=== PATIENT | male | born 1950 | race Caucasian/White ===

== ENCOUNTER 2020-12-08 09:00 | Outpatient (REF) | payer MEDICARE, SELFPAY ==
[2020-12-08 11:44] LABS: Hematocrit 43.2 % (42-52); Hemoglobin 14.5 g/dl (14.0-18.0); Mean Corpuscular HGB Conc 33.6 g/dl (31.0-36.0); Mean Corpuscular Volume 95.4 fL (80-98); Platelet Count 217 X10*3/uL (160-400); Red Blood Count 4.53 X10*6/uL (4.60-5.80); Red Cell Distribution Width 12.7 % (11.0-16.0); White Blood Count 4.2 X10*3/uL (4.8-10.8)
[2020-12-08 11:59] LABS: Alanine Aminotransferase 17 U/L (0-40); Albumin Level 4.5 g/dL (3.5-5.0); Alkaline Phosphatase 89 U/L (39-117); Anion Gap 12 (12-20); Aspartate Amino Transferase 20 U/L (5-37); Blood Urea Nitrogen 30 mg/dL (9-16); Calcium 9.2 mg/dL (8.4-10.2); Carbon Dioxide 28 mmol/L (22-29); Chloride 104 mmol/L (96-108); Cholesterol 176 mg/dL; Estimated Glomerular Filt Rate > 60; Glucose Fasting 96 mg/dL (60-99); HDL Cholesterol 73 mg/dL; LDL Cholesterol Calculated 92 mg/dl; Potassium 4.3 mmol/l (3.3-5.1); Sodium 140 mmol/L (135-145); Total Protein 7.2 g/dL (6.5-8.0); Triglycerides 58 mg/dL
== END 2020-12-08 09:01 | disposition home or self-care (01) ==
LOC: HO.MANLDS 09:00
PROVIDERS: PCP Internal Medicine; Visit Provider Internal Medicine
DX: E78.00 Pure hypercholesterolemia, unspecified (principal)
CPT/HCPCS: 36415; 80053; 80061; 85027

== ENCOUNTER 2021-02-23 10:23 | Outpatient (REF) | payer MEDICARE, SELFPAY ==
[2021-02-23 14:08] LABS: T4 Thyroxine 5.2 ug/dL (4.5-12.0); Thyroid Stimulating Hormone 4.57 uIU/mL (0.32-4.0)
== END 2021-02-23 10:24 | disposition home or self-care (01) ==
LOC: HO.MANLDS 10:23
PROVIDERS: Visit Provider Internal Medicine
DX: C76.0 Malignant neoplasm of head, face and neck (principal)
CPT/HCPCS: 36415; 84436; 84443

== ENCOUNTER 2021-07-06 08:47 | Outpatient (REF) | payer MEDICARE, SELFPAY ==
[2021-07-06 12:06] LABS: Free T4 (Free Thyroxine) 0.69 ng/dL (0.71-1.85); PSA,Total (Free>4and<10) 0.63 ng/mL (0.00-4.00); Thyroid Stimulating Hormone 7.95 uIU/mL (0.32-4.0)
== END 2021-07-06 08:48 | disposition home or self-care (01) ==
LOC: HO.MANLDS 08:47
PROVIDERS: PCP Internal Medicine; Visit Provider Internal Medicine
DX: R94.6 Abnormal results of thyroid function studies (principal); Z12.5 Encounter for screening for malignant neoplasm of prostate; C61 Malignant neoplasm of prostate
CPT/HCPCS: 36415; 84153; 84439; 84443

== ENCOUNTER 2021-09-28 15:28 | Outpatient (REF) | payer MEDICARE, SELFPAY ==
[2021-09-28 17:48] LABS: Hematocrit 37.6 % (42.0-52.0); Hemoglobin 13.1 g/dl (14.0-18.0); Mean Corpuscular HGB Conc 34.8 g/dl (31.0-36.0); Mean Corpuscular Hemoglobin 32.3 pg (27.0-33.0); Mean Corpuscular Volume 92.6 fL (80.0-98.0); Mean Platelet Volume 9.9 fL (9.4-12.4); Platelet Count 210 X10*3/uL (160-400); Red Blood Count 4.06 X10*6/uL (4.60-5.80); Red Cell Distribution Width 12.4 % (11.0-16.0); White Blood Count 4.6 X10*3/uL (4.8-10.8)
[2021-09-28 18:07] LABS: Alanine Aminotransferase 16 U/L (0-40); Albumin Level 4.3 g/dL (3.5-5.0); Alkaline Phosphatase 106 U/L (39-117); Anion Gap 13 (12-20); Aspartate Amino Transferase 17 U/L (5-37); Bilirubin Total 0.6 mg/dL (0.0-1.0); Blood Urea Nitrogen 19 mg/dL (9-16); Calcium 9.3 mg/dL (8.4-10.2); Carbon Dioxide 27 mmol/L (22-29); Chloride 108 mmol/L (96-108); Estimated Glomerular Filt Rate > 60; Glucose Random 99 mg/dL (60-115); Potassium 3.9 mmol/L (3.3-5.1); Sodium 144 mmol/L (135-145); Total Protein 6.7 g/dL (6.5-8.0)
[2021-09-28 18:29] LABS: Free T4 (Free Thyroxine) 1.18 ng/dL (0.71-1.85); Thyroid Stimulating Hormone 0.07 uIU/mL (0.32-4.0)
== END 2021-09-28 15:29 | disposition home or self-care (01) ==
LOC: HO.MANLDS 15:28
PROVIDERS: PCP Internal Medicine; Visit Provider Internal Medicine
DX: E03.9 Hypothyroidism, unspecified (principal); C76.0 Malignant neoplasm of head, face and neck
CPT/HCPCS: 36415; 80053; 84439; 84443; 85027

== ENCOUNTER 2022-03-29 12:49 | Outpatient (REF) | payer MEDICARE, SELFPAY | END 2022-03-29 12:50 | disposition home or self-care (01) | LOC: HO.MANLDS 12:49 | PROVIDERS: PCP Internal Medicine; Visit Provider Internal Medicine | DX: E03.9 Hypothyroidism, unspecified (principal) | CPT/HCPCS: 36415 ==

== ENCOUNTER 2022-03-30 16:15 | Outpatient (REF) | payer MEDICARE, SELFPAY ==
[2022-03-30 18:56] LABS: Free T4 (Free Thyroxine) 1.45 ng/dL (0.71-1.85); Thyroid Stimulating Hormone 0.03 uIU/mL (0.32-4.0)
== END 2022-03-30 16:16 | disposition home or self-care (01) ==
LOC: HO.MANLDS 16:15
PROVIDERS: PCP Internal Medicine; Visit Provider Internal Medicine
DX: E03.9 Hypothyroidism, unspecified (principal)
CPT/HCPCS: 36415; 84439; 84443

== ENCOUNTER 2023-02-28 08:25 | Outpatient (REF) | payer MEDICARE, SELFPAY ==
[2023-02-28 12:04] LABS: Hemoglobin 14.1 g/dl (14.0-18.0); Mean Corpuscular HGB Conc 33.6 g/dl (31.0-36.0); Mean Corpuscular Hemoglobin 31.6 pg (27.0-33.0); Mean Corpuscular Volume 94.2 fL (80.0-98.0); Mean Platelet Volume 9.8 fL (9.4-12.4); Platelet Count 223 X10*3/uL (160-400); Red Blood Count 4.46 X10*6/uL (4.60-5.80); Red Cell Distribution Width 12.7 % (11.0-16.0); White Blood Count 3.9 X10*3/uL (4.8-10.8)
[2023-02-28 12:37] LABS: Alanine Aminotransferase 14 U/L (0-40); Albumin Level 4.3 g/dL (3.5-5.0); Alkaline Phosphatase 99 U/L (39-117); Anion Gap 12 (12-20); Aspartate Amino Transferase 16 U/L (5-37); Bilirubin Total 1.3 mg/dL (0.0-1.0); Blood Urea Nitrogen 29 mg/dL (9-16); Calcium 9.3 mg/dL (8.4-10.2); Carbon Dioxide 28 mmol/L (22-29); Chloride 104 mmol/L (96-108); Cholesterol 171 mg/dL; Estimated Glomerular Filt Rate > 60; Glucose Fasting 101 mg/dL (60-99); HDL Cholesterol 66 mg/dL; LDL Cholesterol Calculated 92 mg/dl; Potassium 4.3 mmol/L (3.3-5.1); Sodium 140 mmol/L (135-145); Total Protein 6.8 g/dL (6.5-8.0); Triglycerides 66 mg/dL; Vitamin D 25-OH Total 60.9 ng/mL (>30)
== END 2023-02-28 08:26 | disposition home or self-care (01) ==
LOC: HO.MANLDS 08:25
PROVIDERS: Visit Provider Internal Medicine
DX: E78.00 Pure hypercholesterolemia, unspecified (principal); E55.9 Vitamin D deficiency, unspecified
CPT/HCPCS: 36415; 80053; 80061; 82306; 85027

== ENCOUNTER 2025-09-29 | Outpatient (REF) | payer MEDICARE, SELFPAY ==
[2025-10-02 14:17] LABS: FIT1 NEGATIVE (NEGATIVE)
[2025-10-02 14:18] LABS: FIT Int Ctl YES; FIT Lot M502755
--- OUTSIDE RECORDS SUMMARY | 2025-10-02 16:03 | XMS_ITS | Data Portability ---
Author Organization [facility], Telehealth Patient Home Address [address] [place] [address] Assessment Encounter Date Assessment Date Assessment LastModified by Organization Details LastModified Time 09/12/2023 09/12/2023 [id number] [place] [address] (JTAC) MDM MODERATE MUST MEET 2 OUT OF 3 ELEMENTS: PROBLEMS, DATA OR RISK ELEMENT 1: PROBLEMS ADDRESSED 1 OR MORE CHRONIC ILLNESS WITH EXACERBATION OR 2 OR MORE STABLE CHRONIC ILLNESSES OR 1 UNDIAGNOSED NEW PROBLEM OR 1 ACUTE ILLNESS W/SYMPTOMS OR 1 ACUTE COMPLICATED INJURY ELEMENT 2: DATA MUST MEET 1 OF 3 CATEGORIES CATEGORY 1: REVIEW OF PRIOR EXTERNAL NOTES, REVIEW OF RESULTS, ORDERING OF EACH TEST, ASSESSMENT REQUIRING INDEPENDENT HISTORIAN OR CATEGORY 2: INDEPENDENT INTERPRETATION OF TESTS BY ANOTHER PHYSICIAN OR SPECIALIST OR CATEGORY 3: DISCUSSION OF MGT OR TEST INTERPRETATION W/EXTERNAL PHYSICIAN OR SPECIALIST ELEMENT 3: RISK RISK OF COMPLICATIONS AND/OR MORBIDITY OR MORTALITY OF PATIENT MANAGEMENT PROVIDER MUST THOROUGHLY DOCUMENT EACH ELEMENT THAT IS COVERED Not available 09/12/2023 10:15:22 03/19/2024 03/19/2024 [id number] [place] [address] (JTAC) MDM MODERATE MUST MEET 2 OUT OF 3 ELEMENTS: PROBLEMS, DATA OR RISK ELEMENT 1: PROBLEMS ADDRESSED 1 OR MORE CHRONIC ILLNESS WITH EXACERBATION OR 2 OR MORE STABLE CHRONIC ILLNESSES OR 1 UNDIAGNOSED NEW PROBLEM OR 1 ACUTE ILLNESS W/SYMPTOMS OR 1 ACUTE COMPLICATED INJURY ELEMENT 2: DATA MUST MEET 1 OF 3 CATEGORIES CATEGORY 1: REVIEW OF PRIOR EXTERNAL NOTES, REVIEW OF RESULTS, ORDERING OF EACH TEST, ASSESSMENT REQUIRING INDEPENDENT HISTORIAN OR CATEGORY 2: INDEPENDENT INTERPRETATION OF TESTS BY ANOTHER PHYSICIAN OR SPECIALIST OR CATEGORY 3: DISCUSSION OF MGT OR TEST INTERPRETATION W/EXTERNAL PHYSICIAN OR SPECIALIST ELEMENT 3: RISK RISK OF COMPLICATIONS AND/OR MORBIDITY OR MORTALITY OF PATIENT MANAGEMENT PROVIDER MUST THOROUGHLY DOCUMENT EACH ELEMENT THAT IS COVERED Not available 03/19/2024 10:02:17 09/17/2024 09/17/2024 Patient presente d to office today for their Medicare Annual Wellness Visit. Education was provided on healthy nutrition, including a diet rich in fruits and vegetables, minimizing simple carbohydrates, salt, and saturated fats. Encouraged regular cardiovascular exercise such as walking at least 30 minutes daily, 5 times per week. Emphasized preventive health measures and educated pt on fall prevention and community-based lifestyle interventions to help reduce health risks and promote healthy living. Not available 08/29/2024 11:02:31 03/25/2025 03/25/2025 [id number] [place] [id number] (JTAC) MDM MODERATE MUST MEET 2 OUT OF 3 ELEMENTS: PROBLEMS, DATA OR RISK ELEMENT 1: PROBLEMS ADDRESSED 1 OR MORE CHRONIC ILLNESS WITH EXACERBATION OR 2 OR MORE STABLE CHRONIC ILLNESSES OR 1 UNDIAGNOSED NEW PROBLEM OR 1 ACUTE ILLNESS W/SYMPTOMS OR 1 ACUTE COMPLICATED INJURY ELEMENT 2: DATA MUST MEET 1 OF 3 CATEGORIES CATEGORY 1: REVIEW OF PRIOR EXTERNAL NOTES, REVIEW OF RESULTS, ORDERING OF EACH TEST, ASSESSMENT REQUIRING INDEPENDENT HISTORIAN OR CATEGORY 2: INDEPENDENT INTERPRETATION OF TESTS BY ANOTHER PHYSICIAN OR SPECIALIST OR CATEGORY 3: DISCUSSION OF MGT OR TEST INTERPRETATION W/EXTERNAL PHYSICIAN OR SPECIALIST ELEMENT 3: RISK RISK OF COMPLICATIONS AND/OR MORBIDITY OR MORTALITY OF PATIENT MANAGEMENT PROVIDER MUST THOROUGHLY DOCUMENT EACH ELEMENT THAT IS COVERED Not available 03/25/2025 10:30:21 09/23/2025 09/23/2025 Patient presente d to office today for their Medicare Annual Wellness Visit. Education was provided on healthy nutrition, including a diet rich in fruits and vegetables, minimizing simple carbohydrates, salt, and saturated fats. Encouraged regular cardiovascular exercise such as walking at least 30 minutes daily, 5 times per week. Emphasized preventive health measures and educated pt on fall prevention and community-based lifestyle interventions to help reduce health risks and promote healthy living. [email or web address] Not available 09/11/2025 13:39:48 Plan of Treatment Reminders Order Date Submit Date Provider Last Modified By Organization Details Last Modified Time Details Appointments MEDICARE ANNUAL WELLNESS 2025 10:00A M DR TRACEY Not available Not available Not available Lab hemoglobi n, gastroint estinal, stool 2024 025 [facility], [address] [place] [address], [place], [address], 09/23/2025 09:46:31 vitamin D, 25-hydrox y, total, serum 2024 025 [facility], [address] [place] [address], [id number], 03/25/2025 10:35:12 lipid panel, blood 2024 025 [facility], [address] [place] [address], [id number], 03/25/2025 10:35:12 CMP, serum or plasma 2024 025 [facility], [address] [place] [address], [id number], 07/22/2025 15:25:12 PSA, serum or plasma 2024 025 [facility], [address] [place] [address], [id number], 03/25/2025 10:35:12 CBC 2024 025 [facility], [address] [place] [address], [id number], 03/25/2025 10:35:12 TSH + free T4, serum 2024 025 [facility], [address] [place] [address], [id number], 03/25/2025 10:35:12 CBC w/ auto diff 2023 024 [facility] (Centralized Electronic Ordering - All Locations), Patient Can Go To The Location Of Their Choice, [id number] 09/25/2024 01:38:49 HbA1c (hemoglob in A1c), blood 2023 024 [facility] (Centralized Electronic Ordering - All Locations), Patient Can Go To The Location Of Their Choice, 09/25/2024 01:38:49 TSH + free T4, serum 2023 024 [facility] Patient Can Go To The Location Of Their Choice, [id number] 09/25/2024 01:38:49 lipid panel, blood 2023 024 [facility] Patient Can Go To The Location Of Their Choice, [id number] 04/03/2024 00:52:22 CMP, serum or plasma 2023 024 [facility]), Patient Can Go To The Location Of Their Choice, [id number] 04/03/2024 00:52:22 CBC 2023 [facility] Patient Can Go To The Location Of Their Choice, 04/03/2024 00:52:22 TSH, serum or plasma 2023 024 [facility]), Patient Can Go To The Location Of Their Choice, [id number] 04/03/2024 00:52:22 Referral None recorded. Procedures None recorded. Surgeries None recorded. Imaging bone density 2024 025 [email or web address] [facility], [address] [facility] [place], [address], 09/23/2025 09:51:09 Medication Orders dexlansop razole 60 mg capsule,b iphase delayed release 2023 024 [id number], [address], [place], [phone], 09/23/2025 09:11:35 meloxicam 15 mg tablet 2022 023 [facility], [address], [place], [phone], 09/23/2025 09:12:20 Patient TargetsNo targets recorded. Patient Instructions Encounter Date Encounter Id Patient Instructions Last Modified By Organization Details Last Modified Time 09/17/2024 [id number] advance care planning: care instructions Not available 09/17/2024 10:48:20 hypothyroidism: care instructions Not available 09/17/2024 11:14:52 Discussed and explained advance directives such as standard forms to the . Face to face discussion lasted for a duration of ___ minutes. Not available 08/29/2024 11:02:31 09/23/2025 [id number] advance care planning: care instructions Not available 09/23/2025 09:45:19 Discussed and explained advance directives such as standard forms to the patient. Face to face discussion lasted for a duration of _20_ minutes. Not available 09/23/2025 09:45:34 Reason for Referral None Reported. Results Created Date Observation Date Name Description Value Unit Range Abnormal Flag Note LastModifiedBy Organization Detail LastModifiedTime Result Notes None recorded. 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 Not Available [facility] 0 12:24:02 [facility] 07953998 Active 2017 Not Available [facility] 0 12:24:02 Hypercho lesterol emia 44161904 Active 2017 Not Available [facility] 0 12:24:02 Osteoart hritis 532505934 Active 2017 Not Available [facility] 0 12:24:02 Deep venous thrombos is 413644046 Active 2017 Not Available [facility] 0 12:24:02 Malignan t neoplasm of head and/or neck 645595065 Active 2018 Not Available [facility] 0 12:24:02 Adenocar cinoma of prostate 740198564 Active 2019 Not Available [facility] 0 12:24:02 Multiple nodules of lung 893133804 Active 2019 Not Available [facility] 0 12:24:02 Hypothyr oidism 86598312 Active 2020 JOSE JUAN MONTOYA [address] [place] [address], [phone], [facility] 1 11:46:23 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 Sincere Tracey, DO [address] [place] [address], [phone], [facility] 2 10:43:55 Right inguinal hernia 255429136 Active 2021 Sincere Tracey DO [address] [place] [address], [phone], [facility] 2 10:08:13 Vitamin D deficien cy 66297989 Active 2022 Sincere Tracey DO [address] [place] [address], [phone], [facility] 3 10:11:25 Lumbar arthriti s 288535179 Active 2022 Sincere Tracey DO [address] [place] [address], [address], [facility] 3 10:08:21 Unintent ional weight loss 534189059 Active 2022 Sincere Tracey, DO [address] [place] [address], [phone], [facility] 3 10:15:34 Problem Notes None recorded. Procedures Surgical History Date Name Laterality Status Provider Name and Address Organization Details Recorded Time 04/12/20 24 Colonoscopy completed Sincere Tracey DO [address] [place] [address], [phone], [facility] 04/12/2024 16:26:38 Imaging Results None recorded. Procedure Notes None recorded. Medical Equipment None Reported. Allergies Allergen ID Allergen Name Allergen Category Reaction Reaction Severity Criticality Documentation Date Start Date Code Code System Note Provider Name and Address Organization Details Recorded Time 971 Product containin g angiotens in-conver ting enzyme inhibitor (product) medicatio n cough Not available Not available 03/15/2018 76236 009 SNOMED Ana Allison NP, [address] [place], [address], [facility] 8 10:05:05 Medications Name Sig Start Date Stop Date Status Note LastModified by Organization Details LastModified Time losartan 50 mg tablet TAKE 1 TABLET BY MOUTH EVERY DAY active Not Available Not Available No t Available cyclobenzapr ine 10 mg tablet Take 1 tablet twice a day by oral route for 14 days. 08/20 completed Not Available Not Available Not Available amoxicillin 500 mg capsule TAKE 1 CAPSULE BY MOUTH THREE TIMES DAILY UNTIL GONE active Not Available Not Available No t Available nystatin 100,000 unit/mL oral suspension 06/21 completed Not Available Not Available Not Available atorvastatin 10 mg tablet TAKE 1 TABLET BY MOUTH EVERY DAY active Not Available Not Available No t Available Lidocaine Viscous 2 % mucosal solution 03/17 completed Not Available Not Available Not Available meloxicam 15 mg tablet TAKE 1 TABLET BY MOUTH EVERY DAY 09/23 completed Not Available Not Available Not Available oxycodone 5 mg/5 mL oral solution 03/17 completed Not Available Not Available Not Available ciprofloxaci n 500 mg tablet 02/23 completed Not Available Not Available Not Available peg-electrol yte solution 420 gram oral solution 09/17 completed Not Available Not Available Not Available tramadol 50 mg tablet TAKE 1 TABLET BY MOUTH EVERY 4 TO 6 HOURS NEEDED FOR PAIN 02/21 completed Not Available Not Available Not Available triamcinolon e acetonide 0.1 % topical cream 03/17 completed Not Available Not Available Not Available cephalexin 500 mg capsule Take 1 capsule 3 times a day by oral route for 10 days. 11/08 completed Not Available Not Available Not Available pantoprazole 40 mg tablet,delay ed release TAKE 2 TABLETS BY MOUTH EVERY DAY active Not Available Not Available No t Available levothyroxin e 125 mcg tablet TAKE 1 TABLET BY MOUTH EVERY DAY 07/22 completed Not Available Not Available Not Available omeprazole 20 mg capsule,belen yed release take 1 capsule by mouth twice a day 01/23 completed Not Available Not Available Not Available mupirocin 2 % topical ointment 06/21 completed Not Available Not Available Not Available ergocalcifer ol (vitamin D2) 1,250 mcg (50,000 unit) capsule take 1 capsule by mouth every week 06/27 completed Not Available Not Available Not Available fluocinonide 0.05 % topical cream 03/17 completed Not Available Not Available Not Available doxycycline hyclate 100 mg tablet Take 1 tablet twice a day by oral route for 7 days. 06/27 completed Not Available Not Available Not Available levothyroxin e 112 mcg tablet TAKE 1 TABLET BY MOUTH EVERY DAY active Not Available Not Available No t Available amoxicillin 875 mg-potassium clavulanate 125 mg tablet 08/06 completed Not Available Not Available Not Available oxycodone 5 mg tablet TAKE 1 TABLET LYNN 4 HOURS NEEDED FOR PAIN 09/23 completed Not Available Not Available Not Available Asprin Ec Low Dose 81 mg tablet,delay ed release Take 1 tablet every day by oral route. active Not Available Not Available No t Available chlorhexidin e gluconate 0.12 % mouthwash 03/17 completed Not Available Not Available Not Available Vitamin D3 5000 IU qd active Not Available Not Available No t Available dexlansopraz ole 60 mg capsule,biph ase delayed release Take 1 capsule every day by oral route for 30 days. 09/23 completed Not Available Not Available Not Available Suprep Bowel Prep Kit 17.5 gram-3.13 gram-1.6 gram oral solution 11/08 completed Not Available Not Available Not Available Shingrix (PF) 50 mcg/0.5 mL intramuscula r suspension, kit 08/06 completed Not Available Not Available Not Available Vitals Date Recorded Body height Body mass index (BMI) Body weight Heart rate Oxygen saturation Oxygen saturation in Arterial blood by Pulse oximetry Systolic And Diastolic Provider Name and Address Organization Details Last Updated DateTime 4 169.55 cm 24.6 kg/m2 54436.9 7 g 81 /min 99 % 99 % 132/78 mm[Hg] Neli Barone MA [facility] 4 09:52:08 Date Recorded Body height Body mass index (BMI) Body weight Oxygen saturation Oxygen saturation in Arterial blood by Pulse oximetry Systolic And Diastolic Provider Name and Address Organization Details Last Updated DateTime 5 169.55 cm 23.7 kg/m2 48432.8 6 g 97 % 97 % 110/68 mm[Hg] Dianna Jenkins [facility] 5 10:05:28 Date Recorded Body height Body mass index (BMI) Body weight Oxygen saturation Oxygen saturation in Arterial blood by Pulse oximetry Heart rate Systolic And Diastolic Provider Name and Address Organization Details Last Updated DateTime 3 169.55 cm 25.2 kg/m2 02939.7 8 g 97 % 97 % 83 /min 111/62 mm[Hg] Natalie Segoviakes [facility] 3 09:57:52 Date Recorded Body height Body mass index (BMI) Body weight Heart rate Oxygen saturation Oxygen saturation in Arterial blood by Pulse oximetry Systolic And Diastolic Provider Name and Address Organization Details Last Updated DateTime 4 169.55 cm 23.6 kg/m2 35945.7 8 g 68 /min 99 % 99 % 140/78 mm[Hg] Jonel Roberto [facility] 4 10:49:15 Date Recorded Body height Body mass index (BMI) Body weight Oxygen saturation Oxygen saturation in Arterial blood by Pulse oximetry Heart rate Systolic And Diastolic Provider Name and Address Organization Details Last Updated DateTime 5 169.55 cm 24.1 kg/m2 21523.9 1 g 98 % 98 % 90 /min 110/68 mm[Hg] Lorelei Kuhn [facility] 5 09:14:48 Social History Question Answer Notes LastModified by [employer] Details LastModified Time Tobacco Smoking Status Former Smoker Not Available [facility] 09/30/2020 03:36:23 What Is Your Level Of Caffeine Consumption? Moderate [id number] Information not available 09/30/2020 What Was The Date Of Your Most Recent Tobacco Screening? 09/23/2025 [email or web address] Information not available 09/23/2025 Sex: Unknown Functional Status Question Answer Note LastModified by Organizat ion Details LastModified Time Do you or have you ever used any other forms of tobacco or nicotine? No [email or web address] Information not available 03/25/2025 What is your level of alcohol consumption? Moderate 1 glass wine per night [id number] Information not available 09/30/2020 What is your exercise level? None [id number] Information not available 09/30/2020 Mental Status None recorded. Family History Nothing Reported. Medical History No medical history recorded. Immunizations Vaccine Type Date Status Note Provider Nam e and Address Organization Details Recorded Time Influenza, split virus, quadrivalent, preservative 09/11/20 21 completed Sincere Tracey DO [address] [place] [address], [phone] 09/28/2021 15:02:43 COVID-19, mRNA, LNP-S, PF, 30 mcg/0.3 mL dose 09/11/20 21 completed Sincere Tracey DO [address] [place] [address], [phone] 09/28/2021 15:02:53 pneumococcal polysaccharide PPV23 09/03/20 18 completed Sincere Tracey DO [address] [place] [address], [phone] 09/04/2018 08:28:29 Influenza, split virus, quadrivalent, preservative 09/03/20 18 completed Sincere Tracey DO [address] [place] [address], [phone] 09/04/2018 08:28:39 influenza, unspecified formulation 09/01/20 22 completed Calra marsh [facility] 02/21/2023 08:32:51 influenza, unspecified formulation 09/09/20 25 completed Lorelei marsh [facility] 09/23/2025 09:16:18 SARS-COV-2 (COVID-19) vaccine, UNSPECIFIED 09/09/20 25 [facility] 09/23/2025 09:16:31 Pneumococcal conjugate PCV 13 06/16/20 17 completed Rosaline marsh, [facility] 04/02/2019 14:10:27 Tdap 08/03/20 15 completed Rosaline marsh [facility] 04/02/2019 14:10:43 Influenza, split virus, quadrivalent, preservative 07/28/20 19 completed Sarah masrh [facility] 08/03/2019 08:12:27 zoster live 07/28/20 [facility] 11:14:53 zoster live 10/07/20 19 completed Sincere Tracey [address], [address], [facility] 10/08/2019 09:09:34 Influenza, split virus, quadrivalent, preservative 08/25/20 20 [facility] 13:43:15 COVID-19, mRNA, LNP-S, PF, 30 mcg/0.3 mL dose 01/12/20 21 ilya marsh [facility] 02/23/2021 09:52:26 COVID-19, mRNA, LNP-S, PF, 30 mcg/0.3 mL dose 02/03/20 21 ilya Quintana [facility] 02/23/2021 09:52:42 Past Encounters Encounter ID Performer Location Encounter Start Date Encounter Closed Date Diagnosis/Indication Diagnosis SNOMED-CT Code Diagnosis ICD10 Code Diagnosis IMO Codes Diagnosis Note [id number] Sincere Tracey [address],[place] [address] 03/17/2018 11:25:24 03/17/2018 13:43:44 Postoperative visit 307135256 Z08 f/u ENT, radiologis t, plastic surgeon doing remarkable well Essential hypertension 04868679 I10 stable [id number] Sincere Tracey [address],[place] [address] 04/21/2018 10:52:47 04/21/2018 12:33:18 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 currently undergoing radiation encouraged to eat as well as possible is taking two can of ensure via gtube without prob they are keeping g tube for now until finished RT as there may be complicati ons with stenosis of esoph pt certainly able to eat ground food Essential hypertension 72529146 I10 stable at this time will follow and if any sx will decrease dose Deep venou s thrombosis 164227126 I82.409 had this in left leg but clot was small and below the knee explains ongoing swellling Wound of skin 451971795 T14.8XXA area of skin with discharge is cultured [id number] Sincere Tracey DO [facility] [address] [facility], [place] [address] 06/21/2018 11:48:49 06/21/2018 15:09:43 Hypercholesterolemia 30856353 E78.00 will cont atorvastat will recheck later in fall Essential hypertension 28505061 I10 stable at this time will follow and if any sx will decrease dose Gastroesop hageal reflux disease 230116124 K21.9 is currently asymptomat ic on omeprazole Cellulitis of lower limb 811113858 L03.119 prob from insect bite [id number] Sincere Tracey [facility] [address] [facility], [place] [address] 11/08/2018 11:17:01 11/08/2018 13:43:31 Essential hypertension 21401688 I10 stable at this time will follow Hypercholesterolemia 136 68385 E78.00 will cont atorvastat lipids are excellent per labwork Gastroesop hageal reflux disease 934404426 K21.9 is currently asymptomat ic on omeprazole and will cont GI will follow strictures Low back pain 229309758 M54.5 mild so will treat with OTC and conserv [id number] Sincere Tracey DO [facility] [address] [facility], [place] [address] 04/02/2019 14:02:49 04/02/2019 14:49:58 Adult health examination 617401871 Z00.00 Active or passive immunization 632019686 Z23 Hepatitis C screening 41 9355450 Z11.59 Abdominal aortic aneurysm screening 473775039 Z13.6 [id number] Sincere Tracey [facility] [address] [facility] [place] [address] 08/06/2019 11:08:35 08/06/2019 12:15:21 Essential hypertension 86622424 I10 stable at this time will follow Hypercholesterolemia 136 81963 E78.00 will cont atorvastat lipids are excellent per labwork History of squamous cell carcinoma 7794406180 9109 Z85.9 doing very welll and will be seeing onc next month after getting a f/u CT Prostate s pecific antigen above reference range 386989635 R97.20 will wait for 1 month and recheck [id number] Sincere Tracey [facility] [address] [place] [address],[place] [address] 09/17/2019 13:45:42 09/17/2019 15:55:43 Essential hypertension 17828616 I10 stable at this time will follow no chnge in meds Malignant neoplasm of head and/or neck 729144754 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 with follow up and repeat ct for follow prior PET scan is neg Prostate s pecific antigen above reference range 214628184 R97.20 is being followed by urology and will have further w/u pending the mri of the gland [id number] Sincere Tracey [facility] [address] [place] [address] [place] [address] 01/02/2020 14:15:21 01/02/2020 15:01:37 Adenocarcinoma of prostate 929426388 C61 Sandstone score 7, PSA 12 Uro rec annual biopsy to screen for progressio n Will recheck PSA in April Gastroesop hageal reflux disease 168059967 K21.9 Clearing throat and coughing more lately Will stop losartan 5 days and see if changes Essential hypertension 92864977 I10 BP is well controlled - will recheck next visit [id number] Sincere Tracey [facility] [address] [facility] [address] [place], [place] [address] 02/04/2020 14:52:59 02/04/2020 15:17:49 Cellulitis 925209379 L03.90 cellulitis of the lower berger on the right side 2 cm scabbed wound will start on doxy will f/u on tuesday to check progress [id number] Sincere Tracey [facility] [address] [facility] [address],[place] [address] 02/08/2020 09:27:48 02/08/2020 09:48:58 Cellulitis of lower leg [id number] L03.115 will give another dose of doxy for another 7 days to see if we can clear the wound and cellulitis will f/u on Tuesday to see how it is going [id number] Sincere Tracey [facility] [address] [facility] [address],[place] [address] 02/13/2020 10:20:09 02/13/2020 11:28:34 Cellulitis of lower leg [id number] L03.115 pt wound is healing nicely reduced redness around the area overall look remarkably better from last time pt was seen has three days left of doxy pt has been instructed to call us if the wound worsens including pain, warmth, fever, increased redness [id number] Sincere Tracey [facility] [address] [facility],[place] [address] 06/27/2020 10:47:43 06/27/2020 12:39:20 Adenocarcinoma of prostate 479307589 C61 psa 8.2 we will send to his urology Uro rec annual biopsy to screen for progressio n Will recheck PSA in April Hypercholesterolemia 136 38547 E78.00 will cont atorvastat lipids are excellent per labwork Deep venou s thrombosis 827752314 I82.409 had this in left leg but clot was small and below the knee no further swelling Essential hypertension 66907808 I10 BP is well controlled - will recheck next visit Strain of neck muscle 36 1849423 S16.1XXA [id number] Sincere Tracey [facility] [address] [facility] [address],[place] [address] 08/20/2020 10:57:42 08/20/2020 12:03:06 Essential hypertension 63349209 I10 BP is well controlled - will recheck next visit Gastroesop hageal reflux disease 660760345 K21.9 Clearing throat and coughing more lately stopping losartan 5 daysdid not help and is back on it Hypercholesterolemia 136 28101 E78.00 will cont atorvastat lipids are excellent per labwork Multiple n odules of lung 759771657 R91.8 stable and followed by pulmonolog ist Malignant neoplasm of head and/or neck 421310488 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 with follow up and repeat ct for follow prior PET scan is neg 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 Adenocarci noma of prostate 850201256 C61 psa 8.2 we will send to his urology Uro rec annual biopsy to screen for progressio n Will recheck PSA in fall Sincere Tracey [facility] [address] [facility],[place] [address] 02/23/2021 09:46:14 02/23/2021 10:16:46 Essential hypertension 14911237 I10 BP is well controlled - will recheck next visit Hypercholesterolemia 136 28102 E78.00 will cont atorvastat lipids are excellent per labwork Benign eso phageal stricture 571139593 K22.2 swallowing is ok Adenocarci noma of prostate 012050757 C61 psa went up to 12 he will be looking at prostatect jc vs RT waiting to discuss with surgeon after bone scan and MRI and then will discuss case 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 All medical conditions on patient's problem list were addressed and are currently stable, no interventi on needed at this time. Based on history and physical performed, the patient is cleared for surgery. 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 and is currently finished with all treatment and is doing well now encouraged to eat as well as possible he is looking into getting implants or dentures is taking two can of ensure via gtube without prob they are keeping g tube for now until finished RT as there may be complicati ons with stenosis of esoph pt certainly able to eat ground food Deep venou s thrombosis 504066089 I82.409 had this in left leg but clot was small and below the knee no further swelling and has been stable Essential hypertension 22443030 I10 BP is well controlled - will recheck next visit Gastroesop hageal reflux disease 584140757 K21.9 Clearing throat and coughing more lately and still has some breakthrou gh stopping losartan 5 days had not helped in the past and he is back on it Hypothyroidism 82320270 E03.9 will need to rechk Malignant neoplasm of head and/or neck 924109671 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 with follow up and repeat ct for follow prior PET scan is neg 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 will need thyroid follow up lab Adenocarci noma of prostate 320403396 C61 psa went up to 12 now a 0.7 he will need RT and then rechk after the RT waiting to discuss with surgeon after bone scan and MRI and then will discuss case [id number] Sincere Tracey DO [facility] [address] [facility],[place] [address] 03/29/2022 10:39:48 03/29/2022 16:28:29 Essential hypertension 24636451 I10 BP is well controlled - will recheck next visit Primary ma lignant neoplasm of mandible 35419072 C41.1 s/p surgical procedure and is currently finished with all treatment and is doing well now encouraged to eat as well as possible he is looking into getting implants or dentureswi ll be seeing surgeon dr paiz in april ENTg tube site is clear Deep venou s thrombosis 760200455 I82.409 had this in left leg but clot was small and below the knee no further swelling and has been stable Adenocarci noma of prostate 822856371 C61 psa went up to 12 now a 0.7 he will need RT and then rechk after the RT waiting to discuss with surgeon after bone scan and MRI and then will discuss case Hypothyroidism 14942410 E03.9 will need to rechk [id number] Sincere Tracey [facility] [address] [facility] [address],[place] [facility] [place] [address] 08/25/2022 09:39:55 08/25/2022 10:41:24 Essential hypertension 58119345 I10 BP is well controlled - will recheck next visit Hypothyroidism 36731374 E03.9 will need to rechk Right inguinal hernia 23 3309812 K40.90 will need tyo get a gen surg [id number] Sincere Tracey [facility] [address] [facility],[place] [employer] [place] [address] 02/21/2023 09:47:36 02/21/2023 10:44:49 Essential hypertension 21292318 I10 BP is well controlled - will recheck next visit Hypercholesterolemia 136 23656 E78.00 will cont atorvastat lipids are needed Primary ma lignant neoplasm of mandible 55653201 C41.1 doing fantastic and still sees dr paiz in may 02no major issues except he needs more work on his teeth. Deep venou s thrombosis 063512053 I82.409 had this in left leg but clot was small and below the knee no further swelling and has been stable Adenocarci noma of prostate 620749130 C61 psa went up to 12 now a 0.7 he will need RT and then rechk after the RT waiting to discuss with surgeon after bone scan and MRI and then will discuss case Vitamin D deficiency 347 54705 E55.9 [id number] Sincere Tracey [facility] [address] [facility],[place] [address] 09/12/2023 09:46:08 09/13/2023 11:28:07 Essential hypertension 28788215 I10 BP is well controlled - will recheck next visit Hypercholesterolemia 136 21892 E78.00 will cont atorvastat lipids are needed Hypothyroidism 53883026 E03.9 will need to rechk Lumbar arthritis 1037902 01 M46.96 has been acting up latelynote d if the meloxicam doesnt help he will let me know and we will get him a quick back strengthen ing program Adenocarci noma of prostate 512617181 C61 waiting to see the urologist his psa has been good for the last few tests but we do not have current.wi ll be waiting for info Unintentio nal weight loss 926374458 R63.4 has lost about 10 lbs which we attribute to his jaw issue will try protein drink supp [id number] Sincere Tracey, [facility] [address] [facility],[place] [address] 03/19/2024 09:44:39 03/19/2024 11:28:32 Essential hypertension 15763332 I10 BP is well controlled - will recheck next visit Hypercholesterolemia 136 85441 E78.00 will cont atorvastat lipids are needed Hypothyroidism 36260607 E03.9 will need to rechk Adenocarci noma of prostate 274967608 C61 waiting to see the urologist his psa has been good for the last few tests but we do not have current.wi ll be waiting for info Lumbar arthritis 0811450 01 M46.96 has been acting up latelynote d if the meloxicam doesnt help he will let me know and we will get him a quick back strengthen ing program [id number] Sincere Tracey, [facility] [address] [facility],[place] [address] 09/17/2024 10:44:16 09/17/2024 11:24:17 Adult health examination 708278946 Z00.00 doing grea t except for the wgt loss and breakthrou gh sx of the gerd despite high dose tx Screening for cardiovascular system disease 839971581 Z13.6 utd Screening for malignant neoplasm of colon 619529182 Z12.11 had colonoscop y already with good results Depression screening 171 701811 Z13.31 aneg Carcinoma of prostate 25 3042702 C61 followed by urol psa stable Essential hypertension 20683779 I10 BP is well controlled - will recheck next visit Benign eso phageal stricture 264751440 K22.2 swallowing is ok with softer foods but is losing a little weight stillstill having sx breakthrou gh Hypothyroidism 34618128 E03.9 will need to rechk Unintentio nal weight loss 255852714 R63.4 has lost about 10 lbs which we attribute to his jaw issue will try protein drink supp [id number] Sincere Tracey [facility] [address] [facility],[place] [address] 03/25/2025 09:55:52 03/25/2025 10:37:27 Essential hypertension 09397977 I10 BP is well controlled - will recheck next visit Hypercholesterolemia 136 81176 E78.00 will cont atorvastat lipids are needed Hypothyroidism 27015760 E03.9 will need to rechk Primary ma lignant neoplasm of mandible 87765398 C41.1 doing fantastic and still sees dr paiz in may 02no major issues except he needs more work on his teeth. Vitamin D deficiency 347 08295 E55.9 Depression screening 171 296469 Z13.31 aneg Benign eso phageal stricture 106233885 K22.2 swallowing is ok with softer foods but is losing a little weight stillstill having sx breakthrou gh [id number] Sincere Tracey [facility] [address] [facility],[place] [address] 09/23/2025 09:06:19 09/23/2025 09:51:09 Screening for cardiovascular system disease 963405218 Z13.6 utdon all lab Screening for malignant neoplasm of colon 228588984 Z12.11 had colonoscop y already with good results Depression screening 171 623047 Z13.31 aneg Adenocarci noma of prostate 844783461 C61 psa is stable for a year at 0.6 Preventive procedure 169 570732 Z00.00 51601073 doing grea t except for the wgt loss and breakthrou gh sx of the gerd despite high dose tx Screening for osteoporosis 473955285 Z13.820 [id number] per medicare [facility] Health Concerns Section Related Observation LastModified by Organization Detai ls LastModified Time None Recorded Concern Status LastModified by Organization Details LastModified Time None Recorded Advance Directives Directive None Recorded Payers Insurance Date Sequence Insurance Name Policy Number Policy Cooley Covered Member ID Cooley Member ID Guarantor Name 09/17/2025 1 [place] [employer] Gavino San Jr [id number] Gavino San 09/20/2025 2 [place] [id number] Gavino San [id number] Gavino San Notes Date Note Type Note Provider Name and Address Organization Details Recorded Time 09/12/20 23 text/htm l Care Management - HypertensionReported by PatientHPIFor self care, patient reportsnot under emotional stress. For severity, patient reportssymptoms are improvinganddoes not interfere with daily activities. For associated symptoms, patient reportsno dizziness,no lightheadedness,no chest pain,no shortness of breath,no palpitations,no edema,no calf muscle cramps,no blurred vision,no confusion,no headaches, andno fatigue.ROS as noted in the HPI feels wellhas had some lumbar back painno cp no sobotherwise bowels goodappetite oksleep is goodstill working daily 40 hrs!!has kept weight off Sincere Tracey DO [address] [facility], [place], [address], [facility] 09/12/2023 10:20:31 03/19/20 24 text/htm l here for rechk and is doing ok overallrelates that no major issuesno cp no sobappetite is goodbowels okneeds dental implants but will cost 40k!!! Sincere Tracey DO [address] [place], [address], [facility] 03/19/2024 10:09:56 09/17/20 24 text/htm l Medicare Annual Wellness VisitReported by PatientSocial/Behavioral HistoryFor diet and nutrition, patient reportshealthy diet. For fracture risk, patient reportsno history of fractures,no recent explained fracture,no sudden unexplained fractures, andno previous musculoskeletal injuries. For physical activity, patient reportsexercises on a regular basis,recent increase in physical activity, andgood physical condition.Mental Status:For depression risk, patient reportsnever feels sad, empty, or tearful,no loss of interest in activities,no significant changes in weight,no sleep disturbances or insomnia,no agitation,no loss of energy,no feelings of worthlessness or guilt,no thoughts of suicide,no history of depression, andno history of mood disorders. For orientation, patient reportsno disorientation to time,no disorientation to date, andno disorientation to place. For concentration and memory, patient reportsno decreased concentrating ability,no memory lapses or loss, anddoes not forget words. For speech/motor difficulties, patient reportsno speech difficulties,no difficulty expressing formulated concepts,no difficulty with fine manipulative tasks,no difficulty writing/copying,no slowed reaction time, anddoes not knock things over when trying to pick them up.Functional AbilityFor hearing, patient reportsno loss of hearing. For vision, patient reportsno vision problems. For activities of daily living, patient reportsable to bathe with limited or no assistance,able to contol urination and bowels,able to dress with limited or no assistance,able to feed self with limited or no assistance,able to get out of chair or bed with limited or no assistance,able to groom with limited or no assistance, andable to toilet with limited or no assistance. For instrumental activities of daily living, patient reportsable to do house work with limited or no assistance,able to grocery shop with limited or no assistance,able to manage medications with limited or no assistance,able to manage money with limited or no assistance,able to prepare meals with limited or no assistance, andable to use the phone with limited or no assistance. For falls risk assessment, patient reportsno frequent falls while walking,no fall in the past year,no fall since last visit, andno dizziness/vertigo. For home safety, patient reportsno unsafe alanna hazzards,no unsafe stairs,no unsafe gas appliances,working smoke/co detectors,wears protective head gear for biking/high velocity,use of seatbelts,practicing 'safer sex',no vision or hearing loss while driving,no fire arms,has hand bars in the bathroom/shower, andgood lighting in the home.ROS as noted in the HPI here for wellness doing good'no cp no sobdoes have occ gerd sx once in a whileesoph stricture may have a lot to do with this as his ent surg said it woulddespite the pntoprazole 40mg 2 tabs daily Sincere Tracey, DO [address] [place], [address], [facility] 09/17/2024 11:21:12 03/25/20 text/htm l Care Management - HypertensionReported by PatientHPIFor self care, patient reportsnot under emotional stress. For severity, patient reportssymptoms are improvinganddoes not interfere with daily activities. For associated symptoms, patient reportsno dizziness,no lightheadedness,no chest pain,no shortness of breath,no palpitations,no edema,no calf muscle cramps,no blurred vision,no confusion,no headaches, andno fatigue. Care Management - Acquired HypothyroidismReported by PatientCare ManagementFor medication education, patient reportsunderstands administration,understands effect of concurrent medications,understands missed doses, andunderstands consequences of noncompliance.Interim HistoryFor associated symptoms, patient reportsno abnormal weight gain,no tiredness,no dry skin,no cold intolerance,no constipation,no diarrhea, andno goiter. Care Management - HyperlipidemiaReported by PatientHPIFor control, patient reportsusually well controlled,improving, andat goal. For complications, patient reportsno coronary artery disease,no heart attack,no cardiovascular disease,no pancreatitis, andno stroke.ROS as noted in the HPI here for roeck and is feeling well oveallrelates had a PET scan this fall which was negativehad lab in then and all was goodno cp no sobsleep is fairbowels okbladder good Sincere Tracey, DO [address] [facility], [place], [address], [facility] 03/25/2025 10:35:16 09/23/20 25 text/htm l Medicare Annual Wellness VisitReported by PatientSocial/Behavioral HistoryFor diet and nutrition, patient reportshealthy diet. For fracture risk, patient reportsno history of fractures,no recent explained fracture,no sudden unexplained fractures, andno previous musculoskeletal injuries. For physical activity, patient reportsexercises on a regular basis,recent increase in physical activity, andgood physical condition.Mental Status:For depression risk, patient reportsnever feels sad, empty, or tearful,no loss of interest in activities,no significant changes in weight,no sleep disturbances or insomnia,no agitation,no loss of energy,no feelings of worthlessness or guilt,no thoughts of suicide,no history of depression, andno history of mood disorders. For orientation, patient reportsno disorientation to time,no disorientation to date, andno disorientation to place. For concentration and memory, patient reportsno decreased concentrating ability,no memory lapses or loss, anddoes not forget words. For speech/motor difficulties, patient reportsno speech difficulties,no difficulty expressing formulated concepts,no difficulty with fine manipulative tasks,no difficulty writing/copying,no slowed reaction time, anddoes not knock things over when trying to pick them up.Functional AbilityFor hearing, patient reportsno loss of hearing. For vision, patient reportsno vision problems. For activities of daily living, patient reportsable to bathe with limited or no assistance,able to contol urination and bowels,able to dress with limited or no assistance,able to feed self with limited or no assistance,able to get out of chair or bed with limited or no assistance,able to groom with limited or no assistance, andable to toilet with limited or no assistance. For instrumental activities of daily living, patient reportsable to do house work with limited or no assistance,able to grocery shop with limited or no assistance,able to manage medications with limited or no assistance,able to manage money with limited or no assistance,able to prepare meals with limited or no assistance, andable to use the phone with limited or no assistance. For falls risk assessment, patient reportsno frequent falls while walking,no fall in the past year,no fall since last visit, andno dizziness/vertigo. For home safety, patient reportsno unsafe alanna hazzards,no unsafe stairs,no unsafe gas appliances,working smoke/co detectors,wears protective head gear for biking/high velocity,use of seatbelts,practicing 'safer sex',no vision or hearing loss while driving,no fire arms,has hand bars in the bathroom/shower, andgood lighting in the home.ROS as noted in the HPI Sincere Tracey, DO [address] [facility], [place], [address], [facility] 09/23/2025 09:45:56
--- OUTSIDE RECORDS SUMMARY | 2025-10-02 16:03 | XMS_ITS | Data Portability ---
Author Organization [place] - [facility], Allergy Address [address] [facility] [address] [place] [phone] Care Team Providers Care Security System Technician Name Role Phone KAMINI TRACEY Primary Care Provider [phone] Assessment Encounter Date Assessment Date Assessment LastModified by Organization Details LastModified Time 05/10/2024 05/10/2024 No evidence of disease on examination today. Fiberoptic examination of nasopharynx, hypopharynx and larynx was stable. Cancer surveillance in 12 months was recommended. [email or web address] Not available 05/10/2024 09:17:05 04/29/2025 04/29/2025 No evidence of disease on examination today. Fiberoptic examination of nasopharynx, hypopharynx and larynx was stable. Cancer surveillance in 12 months was recommended. [email or web address] Not available 04/24/2025 11:05:30 Plan of Treatment Reminders Order Date Submit Date Provider Last Modified By Organization Details Last Modified Time Details Appointments Establish ed 15 2025 10:30A M VLADISLAV ALBARADO MD Not available Not available Not available Lab None recorded. Referral None recorded. Procedures None recorded. Surgeries None recorded. Imaging None recorded. Medication Orders None recorded. Patient TargetsNo targets recorded. Patient InstructionsNo instructions recorded. Reason for Referral None Reported. Results Created Date Observation Date Name Description Value Unit Range Abnormal Flag Note LastModifiedBy Organization Detail LastModifiedTime 07/18/2002/14/2019 bonniei ng/mariann best tic resul t No observ ation record ed. [email or web address] Not Available 01:42:30 Result Notes None recorded. 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; Note: Date Diagnosed: 02/14/2019 1:33 PM (D10.6) Not Available [facility] 4 03:17:34 Acute maxillary sinusitis 63909690 Active 2018 Acute maxillary sinusitis, unspecifie d; Note: Date Diagnosed: 05/22/2019 8:44 AM (J01.00) Not Available [facility] 4 03:17:35 Follow-up visit Active 2018 Encounter for follow-up examinatio n after completed treatment for malignant neoplasm; Note: Date Diagnosed: 10/08/2019 8:52 AM (Z08) Not Available [facility] 4 03:17:34 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 Regina ALBARADO MD [address] [place] [address], [place], [phone] , [facility] - [facility] 4 14:08:10 Problem Notes None recorded. Procedures Surgical History Date Name Laterality Status Provider Name and Address Organization Details Recorded Time 04/29/2025 FOL_DP completed VLADISLAV ALBARADO MD [address] [place] [address], [place], [phone], [place] - [facility] 04/24/2025 11:05:34 05/10/2024 FOL_DP completed VLADISLAV ALBARADO MD [address] [place] [address], [phone], [facility] - [facility] 05/10/2024 09:16:50 Imaging Results None recorded. Procedure Notes None recorded. Medical Equipment None Reported. Medications Name Sig Start Date Stop Date Status Note LastModified by Organization Details LastModified Time losartan 50 mg tablet 2019 active Medicati on ID: [id number] D uration Value: 90 Brand Name: losartan Send Method: E-Prescr ibed Sub s Allowed: subs OK Speci al Instruct ion: TAKE 1 TABLET BY MOUTH ONCE DAILY Me dication GenericN kermit: losartan Not Available Not Available Not Available Augmentin 875 mg-125 mg tablet 04/29 completed Medicati on ID: [id number] D uration Value: 10 Prescri bed By Name: Vladislav Albarado M.D. Bra nd Name: Augmenti n Send Method: E-Prescr ibed Sub s Allowed: subs OK Speci al Instruct ion: 1 po bid for 10 days Med icationG enericNa me: Augmenti n Not Available Not Available Not Available atorvasta tin 10 mg tablet 2019 active Medicati on ID: [id number] D uration Value: 90 Brand Name: atorvast atin Sen d Method: E-Prescr ibed Sub s Allowed: subs OK Speci al Instruct ion: TAKE 1 TABLET BY MOUTH ONCE DAILY Me dication GenericN kermit: atorvast atin Not Available Not Available Not Available pantopraz ole 40 mg tablet,de layed release 2019 active Medicati on ID: [id number] D uration Value: 90 Brand Name: pantopra zole Sen d Method: E-Prescr ibed Sub s Allowed: subs OK Speci al Instruct ion: TK 1 T PO QD Medic ationGen ericName : pantopra zole Not Available Not Available Not Available levothyro xine 125 mcg tablet active Medicati on ID: [id number] B rand Name: levothyr oxine Se nd Method: E-Prescr ibed Sub s Allowed: subs OK Medic ationGen ericName : levothyr oxine Not Available Not Available Not Available omeprazol e 20 mg capsule,d elayed release 01/25 completed Medicati on ID: [id number] D uration Value: 30 Reason: () Brand Name: omeprazo le Send Method: E-Prescr ibed Sub s Allowed: subs OK Speci al Instruct ion: Take 1 capsule by mouth twice a day Medi cationGe nericNam e: omeprazo le Not Available Not Available Not Available aspirin 81 mg capsule Take 1 capsule every day by oral route. active Not Available Not Available No t Available Vitals Date Recorded Body height Body mass index (BMI) Body weight Provider Name and Address Organization Details Last Updated DateTime 04/29/2025 170.18 cm 23.6 kg/m2 90663.45 g LORENA ETHAN [place] - [facility] 04/29/2025 13:59:53 Date Recorded Body height Body mass index (BMI) Body weight Provider Name and Address Organization Details Last Updated DateTime 05/10/2024 170.18 cm 24 kg/m2 40366.63 g [place] [facility] 05/10/2024 09:02:16 Social History None recorded. Functional Status None recorded. Mental Status None recorded. Family History Nothing Reported. Medical History No medical history recorded. Past Encounters Encounter ID Performer Location Encounter Start Date Encounter Closed Date Diagnosis/Indication Diagnosis SNOMED-CT Code Diagnosis ICD10 Code Diagnosis IMO Codes Diagnosis Note [id number] VLADISLAV ALBARADO MD [facility] [address] [address] 05/10/2024 08:47:03 05/10/2024 09:17:59 History of malignant neoplasm of oral cavity 374839725 Z85.819 [id number] VLADISLAV ALBARADO MD [facility] [address] [address] 04/29/2025 13:39:18 04/29/2025 14:15:57 History of malignant neoplasm of oral cavity 510935357 Z85.819 Health Concerns Section Related Observation LastModified by Organization Detai ls LastModified Time None Recorded Concern Status LastModified by Organization Details LastModified Time None Recorded Advance Directives Directive None Recorded Payers Insurance Date Sequence Insurance Name Policy Number Policy Cooley Covered Member ID Cooley Member ID Guarantor Name 04/28/2025 1 [place] [employer] Gavino San Jr [id number] Gavino Iyerbrandan Oropeza 04/28/2025 2 [place] [id number] Gavino San [id number] Gavino Iyerelanamalcolm 06/07/2024 2 [place] Gavino Amaro Mena Oropeza Gavino Iyerbrandan Oropeza Notes Date Note Type Note Provider Name and Address Organization Details Recorded Time 4 text/html ROS as noted in the HPI prostate PSA - slight elevation 0.1 to 0.4 is undetectablecolonoscopy was negative VLADISLAV ALBARADO MD [address] [place] [address],[address], [phone], [place] - [facility] 05/10/2024 09:17:43 5 text/html ROS as noted in the HPI Primary tumor location: left mandibleTumor staging:[id number]: segmental resection with fibula reconstruction followed by radiation treatment for 33 sessionsDate of treatment completion: 05/15/18Oncology team: Per/Dr. Tapia obtained a partial denture to allow better chew on right side of mouthprostate PSA - slight elevation 0.1 to 0.4 is undetectablecolonoscopy was negative12/31/[address] was benign VLADISLAV ALBARADO MD [address] [place] [address],[address], [phone], [place] - [facility] 04/29/2025 14:15:52
== END 2025-09-29 00:01 | disposition home or self-care (01) ==
LOC: HO.LNP
PROVIDERS: Visit Provider Internal Medicine
DX: Z12.11 Encounter for screening for malignant neoplasm of colon (principal)
CPT/HCPCS: 82274